=== PATIENT | female | born 1975 ===

== ENCOUNTER 2020-11-06 00:28 | Emergency (ER) | payer MEDICAID ==
[2020-11-06 00:39] VITALS: BP 102/68
--- NOTE | 2020-11-06 01:06 | XRay Report ---
RIGHT FOREARM 2 VIEW(S) INDICATION / CLINICAL INFORMATION: pain and swelling COMPARISON: None available. FINDINGS: BONES / JOINT(S): No acute fracture or subluxation. No significant arthritis. SOFT TISSUES: No significant abnormality. ADDITIONAL FINDINGS: None. Signer Name: Marquis Saldivar MD Signed: 11/06/2020 1:02 AM Workstation Name: [id number]
--- NOTE | 2020-11-06 01:07 | XRay Report ---
RIGHT HAND 3 VIEW(S) INDICATION / CLINICAL INFORMATION: pain to lateral hand COMPARISON: None available. FINDINGS: BONES / JOINT(S): No acute fracture or subluxation. No significant arthritis. SOFT TISSUES: No significant abnormality. ADDITIONAL FINDINGS: None. Signer Name: Marquis Saldivar MD Signed: 11/06/2020 1:02 AM Workstation Name: [id number]
--- NOTE | 2020-11-06 01:30 | Emergency Department Report ---
ED Fall HPI - General Chief Complaint: Extremity Injury, Upper Stated Complaint: RT ELBOW PAIN DUE TO FALL Time Seen by Provider: 11/06/20 00:38 Source: patient Mode of arrival: Ambulatory - History of Present Illness MD Complaint: fall (while at skating ring and landed on rigth arm) Loss of Consciousness: none Prolonged Down Time?: no Symptoms Prior to Fall: none Severity: moderate Quality: dull Associated Symptoms: denies: numbness, shortness of breath, abdominal pain, vertigo, confusion - Related Data Allergies Allergy/AdvReac Type Severity Reaction Status Date / Time acetaminophen [From Vicodin] Allergy Itching Verified 11/06/20 00:50 aspirin Allergy Swelling Verified 11/06/20 00:49 erythromycin base Allergy Hives Verified 11/06/20 00:49 hydrocodone [From Vicodin] Allergy Itching Verified 11/06/20 00:50 metoclopramide [From Reglan] Allergy Itching Verified 11/06/20 00:50 Penicillins Allergy Hives Verified 11/06/20 00:48 ED Review of Systems ROS: Stated complaint: RT ELBOW PAIN DUE TO FALL Other details as noted in HPI Comment: All other systems reviewed and negative ED Past Medical Hx - Past Medical History Previous Medical History?: Yes Hx Asthma: Yes Additional medical history: Crohn's - Surgical History Past Surgical History?: Yes Additional Surgical History: Tubal Ligation - Social History Smoking Status: Never Smoker Substance Use Type: None ED Physical Exam - General Limitations: No Limitations General appearance: alert, in no apparent distress - Head Head exam: Present: atraumatic, normocephalic - Eye Eye exam: Present: normal appearance, PERRL, EOMI Pupils: Present: normal accommodation, irregular - ENT ENT exam: Present: normal exam, normal orophraynx, mucous membranes moist - Neck Neck exam: Present: normal inspection - Respiratory Respiratory exam: Present: normal lung sounds bilaterally. Absent: respiratory distress - Cardiovascular Cardiovascular Exam: Present: regular rate, normal rhythm. Absent: systolic murmur, diastolic murmur, rubs, gallop - GI/Abdominal GI/Abdominal exam: Present: soft, normal bowel sounds - Extremities Exam Extremities exam: Present: normal inspection, tenderness, normal capillary refill - Expanded Upper Extremity Exam Right Elbow exam: Present: tenderness, swelling, pain w/ pronation/supination. Absent: ecchymosis, tenderness over radial head Hand Wrist exam: Present: tenderness, swelling. Absent: ecchymosis, crepidus, amputation (Around the area of the snuffbox), subungual hematoma - Back Exam Back exam: Present: normal inspection - Neurological Exam Neurological exam: Present: alert, oriented X3 - Psychiatric Psychiatric exam: Present: normal affect, normal mood - Skin Skin exam: Present: warm, dry, intact, normal color. Absent: rash ED Course Vital Signs 11/06/20 00:37 Temperature 98.3 F Pulse Rate 95 H Respiratory 18 Rate Blood Pressure 102/68 O2 Sat by Pulse 98 Oximetry ED Medical Decision Making - Radiology Data Radiology results: report reviewed Referring Physician:BRAYAN ZAPATAPatient Name:JUAN RODRIGUEZPatient ID:[id number] of :[id number]:FemaleAccession:[id number] Date:8150-11-70Mqczmk Status:Finalized Findings [address] [address] XRay Report Signed Patient: JUAN RODRIGUEZ MR#: [id number] : 1975 Acct:[id number] Age/Sex: 44 / F ADM Date: 11/06/20 Loc: ED Attending Dr: Ordering Physician: PIETER SINCLAIR Date of Service: 11/06/20 Procedure(s): XR forearm RT Accession Number(s): [id number] cc: PIETER SINCLAIR Fluoro Time In Minutes: RIGHT FOREARM 2 VIEW(S) INDICATION / CLINICAL INFORMATION: pain and swelling COMPARISON: None available. FINDINGS: BONES / JOINT(S): No acute fracture or subluxation. No significant arthritis. SOFT TISSUES: No significant abnormality. ADDITIONAL FINDINGS: None. Signer Name: Marquis Saldivar MD Signed: 11/06/2020 1:02 AM Workstation Name: [id number] Transcribed By: TL Dictated By: Marquis Saldivar MD Electronically Authenticated By: Marquis Saldivar MD Signed Date/Time: 11/06/20101 DD/ 1 Referring Physician:BRAYAN ZAPATAPatient Name:JUAN RODRIGUEZNarciso nt ID:[id number] of :[id number]:FemaleAccession:[id number] Date:1161-49-16Fbczkx Status:Finalized Findings [facility] [address] [place] [address] XRay Report Signed Patient: JUAN RODRIGUEZ MR#: [id number] : 1975 Acct:[id number] Age/Sex: 44 / F ADM Date: 11/06/20 Loc: ED Attending Dr: Ordering Physician: PIETER SINCLAIR Date of Service: 11/06/20 Procedure(s): XR hand 3+V RT Accession Number(s): [id number] cc: PIETER SINCLAIR Fluoro Time In Minutes: RIGHT HAND 3 VIEW(S) INDICATION / CLINICAL INFORMATION: pain to lateral hand COMPARISON: None available. FINDINGS: BONES / JOINT(S): No acute fracture or subluxation. No significant arthritis. SOFT TISSUES: No significant abnormality. ADDITIONAL FINDINGS: None. Signer Name: Marquis Saldivar MD Signed: 11/06/2020 1:02 AM Workstation Name: [id number] Transcribed By: TL Dictated By: Marquis Saldivar MD Electronically Authenticated By: Marquis Saldivar MD Signed Date/Time: 11/06/20 0102 - Medical Decision Making Full 4-year-old female status post slip and fall while skating landing on her right arm resulting in contusions to the arm and hand plan is ice therapy can Sanjay wrap and painful joints in conjunction with the sling as needed Critical care attestation.: If time is entered above; I have spent that time in minutes in the direct care of this critically ill patient, excluding procedure time. ED Disposition Clinical Impression: Arm contusion, Hand contusion, Roller skating rink as place of occurrence of external cause, Fall Disposition: DC-01 TO HOME OR SELFCARE Is pt being admited?: No Does the pt Need Aspirin: No Condition: Stable Instructions: Elbow Contusion, Contusion, [place]-on-Crzk, Preventing Injuries During , How to Use Cold Therapy, Hand Contusion Additional Instructions: Please use ice and Sanjay wrap and you may use a sling for for comfort you will need to utilize this therapy for about 1 week expect to be sore for 1 to 2 weeks Referrals: GILMAR BURROUGHS [Other] - 3-5 Days
== END 2020-11-06 02:10 | disposition home or self-care (01) ==
LOC: ED 00:28
DX: S40.021A Contusion of right upper arm, initial encounter (principal); S60.221A Contusion of right hand, initial encounter; J45.909 Unspecified asthma, uncomplicated; Z79.899 Other long term (current) drug therapy; Z88.6 Allergy status to analgesic agent; Z88.8 Allergy status to other drugs, medicaments and biological substances; Z98.51 Tubal ligation status; W19.XXXA Unspecified fall, initial encounter; Y93.51 Activity, roller skating (inline) and skateboarding; Y92.331 Roller skating rink as the place of occurrence of the external cause; Y99.8 Other external cause status